=== PATIENT | female | born 1965 | race Caucasian/White ===

== ENCOUNTER 2019-02-25 08:50 | Outpatient (REF) | payer OTHER, SELFPAY ==
[2019-02-25 21:50] LABS: TSH 1.18 uIU/mL (0.36-3.74)
== END 2019-02-25 09:10 ==
LOC: NCHCN 08:50
PROVIDERS: PCP Nurse Practitioner Family; Visit Provider Nurse Practitioner Family
DX: E03.9 Hypothyroidism, unspecified (principal); L90.0 Lichen sclerosus et atrophicus
CPT/HCPCS: 84443; 87480; 87510; 87660

== ENCOUNTER 2022-01-24 20:35 | Outpatient (REF) | payer OTHER, SELFPAY ==
[2022-01-24 21:19] LABS: FREE T4 0.88 ng/dL (0.76-1.46); TSH 0.97 uIU/mL (0.36-3.74)
[2022-01-25 18:55] LABS: T3, Total 130 ng/dL (97-169)
== END 2022-01-24 20:36 | disposition home or self-care (01) ==
LOC: NCHCN 20:35
PROVIDERS: PCP Nurse Practitioner Family; Visit Provider Physician Assistant
DX: E07.89 Other specified disorders of thyroid (principal)
CPT/HCPCS: 84439; 84443; 84480

== ENCOUNTER 2022-03-19 16:41 | Outpatient (REF) | payer OTHER, SELFPAY ==
[2022-03-19 19:35] LABS: Bilirubin Negative (Negative); Blood Trace-intact (Negative); Clarity Clear (Clear); Glucose Negative (Negative); Ketones Negative (Negative); Leukocyte Esterase Moderate (Negative); Nitrite Negative (Negative); Urobilinogen 0.2 EU/dL (Up TO 0.2)
[2022-03-19 19:44] LABS: Bacteria Few HPF (Negative); C & S Indicated? Yes; Casts Negative LPF (Negative); Crystals Negative HPF (Negative); Epithelial Cells Rare HPF (Negative); Mucus Negative (Negative)
== END 2022-03-19 16:42 | disposition home or self-care (01) ==
LOC: NCHCN 16:41
PROVIDERS: PCP Nurse Practitioner Family; Visit Provider Nurse Practitioner Family
DX: R30.0 Dysuria (principal)
CPT/HCPCS: 87077; 81003; 81015; 87086; 87186

== ENCOUNTER 2024-02-17 08:53 | Outpatient (REF) | payer OTHER, SELFPAY ==
[2024-02-17 20:17] LABS: ALT 26 U/L (14-59); AST 21 U/L (15-37); Albumin 4.1 g/dL (3.4-5.0); Alkaline Phosphatase 87 U/L (46-116); Anion Gap 6.4 mmol/L (3-11); BUN 10 mg/dL (7-18); Bilirubin, Total 0.51 mg/dL (0.2-1.0); CO2 30.6 mmol/L (21.0-32.0); Calcium 9.5 mg/dL (8.5-10.1); Calculated LDL 127 mg/dL (<100); Chloride 103 mmol/L (98-107); Cholesterol 232 mg/dL (<200); Estimated GFR 66.12 (mL/min/1.73m2); Glucose 92 mg/dL (74-106); HDL Cholesterol 95 mg/dL (40-60); Potassium 4.5 mmol/L (3.5-5.1); Sodium 140 mmol/L (136-145); TSH 0.79 uIU/Ml (0.36-3.74); Total Protein 7.5 g/dL (6.4-8.2); Triglyceride 51 mg/dL (<150)
[2024-02-17 20:41] LABS: FREE T4 0.87 ng/dL (0.76-1.46)
== END 2024-02-17 08:54 | disposition home or self-care (01) ==
LOC: NCHCN 08:53
PROVIDERS: PCP Nurse Practitioner Family; Visit Provider Nurse Practitioner Family
DX: Z13.1 Encounter for screening for diabetes mellitus (principal); E07.9 Disorder of thyroid, unspecified; Z13.220 Encounter for screening for lipoid disorders
CPT/HCPCS: 80053; 80061; 84439; 84443

== ENCOUNTER 2024-06-24 11:45 | Outpatient (REF) | payer OTHER, SELFPAY | END 2024-06-24 11:46 | disposition home or self-care (01) | LOC: NCHCN 11:45 | PROVIDERS: PCP Nurse Practitioner Family; Visit Provider Physician Assistant | DX: N98.8 Other complications associated with artificial fertilization (principal) | CPT/HCPCS: 87077; 87086; 87480; 87510; 87660 ==

== ENCOUNTER 2025-04-14 15:04 | Outpatient (REF) | payer BC, SELFPAY ==
[2025-04-14 20:44] LABS: Glucose Negative (Negative)
== END 2025-04-14 15:05 | disposition home or self-care (01) ==
LOC: NCHCN 15:04
PROVIDERS: PCP Nurse Practitioner Family; Visit Provider Nurse Practitioner Family
DX: R30.0 Dysuria (principal)
CPT/HCPCS: 81003